=== PATIENT | male | born 1940 | race Asian ===

== ENCOUNTER 2017-01-30 16:37 | Emergency (ER) | payer OTHER, BC ==
[2017-01-30 17:54] VITALS: BP 131/78
== END 2017-01-30 17:54 | disposition home or self-care (01) ==
LOC: ED 16:37
DX: B02.9 Zoster without complications (principal); M54.2 Cervicalgia; Z85.46 Personal history of malignant neoplasm of prostate; Z79.899 Other long term (current) drug therapy; Z87.891 Personal history of nicotine dependence

== ENCOUNTER 2017-02-06 17:18 | Emergency (ER) | payer OTHER, BC ==
[~2017-02-06] VITALS: Ht 170.2 cm; Wt 91.4 kg
[2017-02-06 17:37] VITALS: BP 124/76
== END 2017-02-06 20:01 | disposition left against medical advice (07) ==
LOC: ED 17:18
DX: Z53.21 Procedure and treatment not carried out due to patient leaving prior to being seen by health care provider (principal)

== ENCOUNTER 2017-02-06 21:13 | Emergency (ER) | payer OTHER, BC ==
[~2017-02-06] VITALS: Ht 170.2 cm; Wt 91.6 kg
[2017-02-06 23:10] VITALS: BP 133/86
== END 2017-02-06 23:10 | disposition home or self-care (01) ==
LOC: ED 21:13
DX: G51.0 Bell's palsy (principal); B02.9 Zoster without complications; Z79.899 Other long term (current) drug therapy
CPT/HCPCS: J7512